=== PATIENT | male | born 1980 | race Hispanic/Latino ===

== ENCOUNTER 2020-04-17 13:12 | Emergency (ER) | payer OTHER ==
[2020-04-17] MEDS ORDERED: Acetaminophen 500 MG TAB ONE (13:47)
--- NOTE | 2020-04-17 15:02 | CT ---
CT HEAD WITHOUT CONTRAST: Indications: Head injury FINDINGS: Ventricles are normal size and position. There is no evidence of intracranial hemorrhage. No mass, ed nicolasa, or infarct. There is a scalp hematoma over the right frontal bone. No evidence of skull fracture. Sinuses are wel l aerated and clear. IMPRESSION: No acute intracranial abnormality. POS: [facility]
== END 2020-04-17 13:50 | disposition home or self-care (01) ==
LOC: NAV ERS 13:12
DX: S01.21XA Laceration without foreign body of nose, initial encounter (principal); S01.81XA Laceration without foreign body of other part of head, initial encounter; I10 Essential (primary) hypertension; E11.40 Type 2 diabetes mellitus with diabetic neuropathy, unspecified; F20.9 Schizophrenia, unspecified; Z86.73 Personal history of transient ischemic attack (TIA), and cerebral infarction without residual deficits; Z79.899 Other long term (current) drug therapy; Z79.4 Long term (current) use of insulin; W22.8XXA Striking against or struck by other objects, initial encounter
CPT/HCPCS: 12011; 70450

== ENCOUNTER 2021-09-14 23:42 | Emergency (ER) | payer OTHER ==
[2021-09-14] MEDS ORDERED: Lidocaine 1% w/Epinephrine 1:100K 20 ML VIAL ONE (23:57)
== END 2021-09-15 00:22 ==
LOC: NAV ERS 23:42
DX: S51.812A Laceration without foreign body of left forearm, initial encounter (principal); F33.9 Major depressive disorder, recurrent, unspecified; I10 Essential (primary) hypertension; E11.40 Type 2 diabetes mellitus with diabetic neuropathy, unspecified; I25.10 Atherosclerotic heart disease of native coronary artery without angina pectoris; X78.8XXA Intentional self-harm by other sharp object, initial encounter; Z86.73 Personal history of transient ischemic attack (TIA), and cerebral infarction without residual deficits; Z79.4 Long term (current) use of insulin; Z79.82 Long term (current) use of aspirin; Z79.899 Other long term (current) drug therapy
CPT/HCPCS: 12001